=== PATIENT | male | born 2000 | race African-American/Black ===

== ENCOUNTER 2020-08-10 12:59 | Emergency (ER) | payer SELFPAY ==
[~2020-08-10] VITALS: Ht 180.3 cm; Wt 69.5 kg
[2020-08-10 14:20] LABS: BASO % 0.2 % (0.0-2.0); EOS # 0.1 (0.0-0.7); EOS % 1.1 % (0-4.0); GRAN # 1.6 (1.4-6.5); GRAN % 37.3 % (42.2-75.2); HEMATOCRIT 40.2 % (36.0-47.0); HEMOGLOBIN 13.2 g/dl (12.5-16.1); LYMPH # 2.3 (1.2-3.4); LYMPH % 52.2 % (20.0-51.0); MEAN CELL VOLUME 88 fl (80.0-95.0); MEAN CORPUSCULAR HEMOGLOBIN 29 pg (26.0-32.0); MEAN CORPUSCULAR HGB CONC 33 g/dl (33.0-37.0); MEAN PLATELET VOLUME 9.3 fl (7.4-10.4); MONO # 0.4 (0.1-0.6); PLATELET COUNT 289 K/mm3 (130-400); RED BLOOD COUNT 4.59 M/mm3 (4.20-5.60); REDCELL DISTRIBUTION WIDTH-CV 12.5 % (11.5-14.5)
[2020-08-10 14:27] LABS: ALANINE AMINOTRANSFERASE 23 U/L (4-49); ALBUMIN 4.4 gm/dL (3.5-5.0); ALKALINE PHOSPHATASE 64 U/L (50-136); ANION GAP 7 mmol/L (7-16); AST,SGOT 32 U/L (15-37); BILIRUBIN,TOTAL 0.5 mg/dL (0.0-1.0); BLOOD UREA NITROGEN 12 mg/dL (9-20); CALCIUM 9.1 mg/dL (8.4-10.2); CARBON DIOXIDE 33 mmol/L (22-30); CHLORIDE 100 mmol/L (98-107); CREATININE, serum 0.83 (0.66-1.25); GLUCOSE 83 mg/dL (74-106); POTASSIUM 4.1 mmol/L (3.4-5.0); SODIUM 139 mmol/L (137-145); TOTAL PROTEIN 7.8 gm/dL (6.4-8.2)
[2020-08-10 14:45] LABS: TROPONIN-I < 0.012 ng/mL (0.000-0.035)
[2020-08-10 15:38] VITALS: BP 112/64; PULSE 72; TEMP 98.1
== END 2020-08-10 15:38 | disposition home or self-care (01) ==
LOC: COL.ER 12:59
PROVIDERS: Family Medicine
DX: R07.89 Other chest pain (principal)